=== PATIENT | female | born 1955 | race Asian ===

== ENCOUNTER 2022-12-03 11:03 | Outpatient (CLI) | payer MEDICARE, BC, SELFPAY | END 2022-12-03 11:04 | disposition home or self-care (01) | LOC: AMB 01-08 14:15 | PROVIDERS: Visit Provider Family Medicine | DX: S79.911A Unspecified injury of right hip, initial encounter (principal); V49.9XXA Car occupant (driver) (passenger) injured in unspecified traffic accident, initial encounter; Y92.415 Exit ramp or entrance ramp of street or highway as the place of occurrence of the external cause | CPT/HCPCS: A0425; A0427 ==